=== PATIENT | male | born 2000 | race Caucasian/White ===

== ENCOUNTER 2023-04-05 10:10 | Emergency (ER) | payer SELFPAY ==
[2023-04-05 10:16] VITALS: BP 115/71; PULSE 93; RESP 20; TEMP 36.6; O2SAT 100
--- NOTE | 2023-04-05 10:33 | ED.SKABFB ---
HPI - Skin/Abscess/Foreign Bdy General Chief complaint: Skin/Abscess/Foreign Body Stated complaint: Rash History of Present Illness HPI narrative: Patient presents with an itchy rash to his groin area. Patient states he has tried some cream that his [id number] gave him but has had no relief. Patient states rash is only in his groin area no drainage from the area Patient states he was looking at houses for the past two days and has been out in the heat. Patient reports the rash is itchy and only in the groin area. no concern for STD and no drainage from the rash. Related Data Allergies Allergy/AdvReac Type Severity Reaction Status Date / Time No Known Allergies Allergy Verified 04/05/23 10:22 Review of Systems Review of Systems: CONSTITUTIONAL: Denies fever, chills, or sweats. EYES: Denies visual changes, redness, or discharge. ENT: Denies rhinorrhea, congestion, sore throat, or otalgia. CARDIOVASCULAR: Denies chest pain, palpitations, or edema. RESPIRATORY: Denies cough or dyspnea. GASTROINTESTINAL: Denies abdominal pain, nausea, vomiting, or diarrhea. GENITOURINARY: Denies dysuria or hematuria. SKIN: Denies rash or itching. MUSCULOSKELETAL: Denies back pain, joint pain, or myalgia. NEUROLOGIC: Denies headache, numbness, or weakness. PSYCHIATRIC: Denies anxiety or depression. PMFSH Comments At time of signature, agree with nursing past medical, surgical, social and family history. There is no relevant family history pertinent to the presenting complaint Exam Narrative: GENERAL: Well-appearing, well-nourished, and in no acute distress. HEAD: Normocephalic, atraumatic. EYES: PERRLA and EOMI. ENT: Nares clear, no rhinorrhea or epistaxis. Mucous membranes moist. NECK: Supple. CHEST: Clear to auscultation. No respiratory distress. HEART: Regular rate and rhythm. No murmur heard. Normal peripheral pulses. ABDOMEN: Soft, nontender, nondistended, normal active bowel sounds. groin area red raised rash bright red rash on area of concern, satellite lesions present, well demarcated. consistent with dalila dermatitis. No signs of secondary bacterial cellulitis. no swelling or involvement of thighs or trunk. GENERAL: Well-appearing, well-nourished, and in no acute distress. HEAD: Normocephalic, atraumatic. EYES: PERRLA and EOMI. ENT: Nares clear, no rhinorrhea or epistaxis. Mucous membranes moist. NECK: Supple. CHEST: Clear to auscultation. No respiratory distress. HEART: Regular rate and rhythm. No murmur heard. Normal peripheral pulses. ABDOMEN: Soft, nontender, nondistended, normal active bowel sounds. EXTREMITIES: Normal range of motion. No edema. various insect bites to both upper legs no concern for cellulitis. SKIN: Warm, dry groin bright red rash on area of concern, satellite lesions present, well demarcated. consistent with dalila dermatitis. No signs of secondary bacterial cellulitis. no swelling or involvement of thighs or trunk. NEURO: No focal deficits. Alert and oriented x3. [place] Coma Scale Eye Opening: Spontaneous 4 [place] Coma Scale Motor: Obeys Commands 6 [place] Coma Scale Verbal: Oriented 5 [place] Coma Scale Total 15 EXTREMITIES: Normal range of motion. No edema. SKIN: Warm, dry, no rash. NEURO: No focal deficits. Alert and oriented x3. [place] Coma Scale Eye Opening: Spontaneous 4 [place] Coma Scale Motor: Obeys Commands 6 [place] Coma Scale Verbal: Oriented 5 [place] Coma Scale Total 15 Course Course Level of Care: Express Care Visit Vital Signs Vital signs: Vital Signs Temperature 36.6 C 04/05/23 10:16 Pulse Rate 93 04/05/23 10:16 Respiratory Rate 04/05/23 10:16 Blood Pressure 115/71 04/05/23 10:16 Pulse Oximetry 100 04/05/23 10:16 Oxygen Delivery Room Air 04/05/23 10:16 Temperature 36.6 C 04/05/23 10:16 Pulse Rate 93 04/05/23 10:16 Respiratory Rate 04/05/23 10:16 Blood Pressure 115/71 04/05/23 10:16 Pulse Oximetry 100
== END 2023-04-05 10:42 | disposition home or self-care (01) ==
PROVIDERS: Emergency Provider Nurse Practitioner Family
DX: S70.362A Insect bite (nonvenomous), left thigh, initial encounter (principal); S70.361A Insect bite (nonvenomous), right thigh, initial encounter; W57.XXXA Bitten or stung by nonvenomous insect and other nonvenomous arthropods, initial encounter; B35.6 Tinea cruris
CPT/HCPCS: 99213; G0463